=== PATIENT | female | born 1965 | race Caucasian/White ===

== ENCOUNTER 2017-07-02 15:15 | Emergency (ER) | payer BC, SELFPAY ==
[~2017-07-02 15:15] MED LIST: Sodium Chloride 0.9% 1,000 ML BAG ONE
[2017-07-02] MEDS ORDERED: Benzonatate 100 MG CAP ONE (16:14)
[2017-07-02] MEDS ORDERED: Ketorolac Tromethamine 30 MG/ML VIAL ONE (16:14)
[2017-07-02] MEDS ORDERED: Ondansetron HCl/PF 4 MG/2 ML Vial ONE (16:15)
--- NOTE | 2017-07-02 16:22 | RAD ---
FRONTAL RADIOGRAPH CHEST: DATE: 07/02/17. COMPARISON: 12/08/16. HISTORY: Cough. FINDINGS: There is no pneumothorax or pleural fluid and no focal consolidation or alveolar edema. There is mil d elevation of the right hemidiaphragm and minimal linear density in the right lung base which may si gnify scar or volume loss. There are degenerative changes involving the right shoulder with elevatio n of the right humeral head. There are old fractures involving the lateral aspect of the right ribs. Postoperative hardware noted in the cervical spine. IMPRESSION: Mild linear density noted in the right lung base. No focal consolidation or alveolar edema. POS: [facility]
[2017-07-02 16:43] LABS: #Basophils 0.1 thou/uL (0.0-0.2); #Eosinphils 0.1 thou/uL (0.0-0.7); #Lymphocytes 2.7 thou/uL (1.20-3.40); #Monocytes 0.7 thou/uL (0.11-0.59); #Neutrophils 6.9 thou/uL (1.40-6.50); %Basophils 0.7 % (0.0-1.0); %Eosinophils 0.7 % (0.0-10.0); %Lymphocytes 26.1 % (21.0-51.0); %Monocytes 6.2 % (0.0-10.0); %Neutrophils 66.3 % (42.0-75.0); Hemoglobin 14.7 g/dL (12.0-16.0); Mean Corpuscular HGB CONC 33.3 g/dL (32.0-36.0); Mean Corpuscular Hemoglobin 29.9 pg (27.0-31.0); Mean Corpuscular Volume 89.7 fl (81.0-99.0); Mean Platelet Volume 7.8 fL (7.4-10.4); Platelet Count 248 thou/uL (130-400); RBC Distribution Width 11.1 % (11.5-14.5); Red Blood Cell (RBC) Count 4.92 mill/uL (4.20-5.40); White Blood Cell (WBC) Count 10.4 thou/uL (4.8-10.8)
[2017-07-02 16:45] LABS: Bilirubin Small (Negative); Blood, Urine Negative (Negative); Glucose, Urine (Dipstick) Negative (Negative); Leukocyte Negative (Negative); Nitrite Negative (Negative); Protein, Urine (Dipstick) Trace mg/dL (Neg-Trace); Specific Gravity, Urine 1.025 (1.005-1.030); Urobilinogen 0.2 mg/dL (0.2-1.0)
[2017-07-02 16:49] LABS: Clarity Hazy (Clear)
[2017-07-02 16:53] LABS: ALT (SGPT) 42 U/L (8-55); AST (SGOT) 26 U/L (5-34); Albumin 4.3 g/dL (3.5-5.0); Alkaline Phosphatase 72 U/L (40-150); Anion Gap 15 mmol/L (10-20); BUN (Urea Nitrogen) 18 mg/dL (9.8-20.1); Bilirubin, Total 0.9 mg/dL (0.2-1.2); Calc. Creatinine Clearance 0 mL/min (70-130); Carbon Dioxide 22 mmol/L (22-29); Chloride 107 mmol/L (98-107); Estimated GFR-MDRD 80; Glucose 101 mg/dL (70-105); Lipase 52 U/L (8-78); Potassium 4.1 mmol/L (3.5-5.1); Protein, Total 8.3 g/dL (6.0-8.3); Sodium 140 mmol/L (136-145)
[2017-07-02 16:55] LABS: Bacteria/HPF 1+ HPF (None Seen); RBC/HPF 0-3 HPF (0-3); Squamous Epithelial 0-3 HPF (0-3); WBC/HPF 0-3 HPF (0-3)
[2017-07-02 16:59] LABS: BHCG - Serum Negative (NEGATIVE); Pregs Control Background? CLEAR/WHITE (CLR/WHITE); Pregs Control Bar Appear? YES (CONTROL BAR)
== END 2017-07-02 17:52 | disposition home or self-care (01) ==
LOC: MADERS 15:15
DX: R11.2 Nausea with vomiting, unspecified (principal); R19.7 Diarrhea, unspecified; K21.9 Gastro-esophageal reflux disease without esophagitis; J45.909 Unspecified asthma, uncomplicated; Z85.43 Personal history of malignant neoplasm of ovary
CPT/HCPCS: 36415; 71045; 80053; 81001; 82150; 83690; 84703; 85025; 87077; 87081; 87086; 87430; 96374; 96375; J1885; J2405; J7050

== ENCOUNTER 2022-09-19 14:37 | Emergency (ER) | payer SELFPAY | END 2022-09-19 16:12 | disposition home or self-care (01) | LOC: MADERS 14:37 | DX: S22.42XA Multiple fractures of ribs, left side, initial encounter for closed fracture (principal); K21.9 Gastro-esophageal reflux disease without esophagitis; W22.8XXA Striking against or struck by other objects, initial encounter ==

== ENCOUNTER 2023-06-14 15:24 | Emergency (ER) | payer BC, SELFPAY | END 2023-06-14 18:18 | disposition home or self-care (01) | LOC: MADERS 15:24 | DX: S63.602A Unspecified sprain of left thumb, initial encounter (principal); K21.9 Gastro-esophageal reflux disease without esophagitis; W23.0XXA Caught, crushed, jammed, or pinched between moving objects, initial encounter; Y93.89 Activity, other specified ==

== ENCOUNTER 2025-02-24 08:40 | Emergency (ER) | payer BC | END 2025-02-24 12:41 | disposition home or self-care (01) | LOC: MADERS 08:40 | DX: T46.5X1A Poisoning by other antihypertensive drugs, accidental (unintentional), initial encounter (principal) | CPT/HCPCS: 36416; 99283 ==